=== PATIENT | male | born 1965 | race Caucasian/White ===

== ENCOUNTER → 2018-07-10 | Day surgery (SDC) | payer BC ==
[2018-07-08 09:53] VITALS: BMI 38.0
[~2018-07-10] MED LIST: LACTATED RINGERS 1,000 ML IV ONE; LACTATED RINGERS 1,000 ML IV SCH; LIDOCAINE 1% 20 ML VIAL (10MG/ML) FOR IV START INTRADERMA ONE; LIDOCAINE 1% INJ 10MG/ML (20 ML MDV) ONE; PROPOFOL 10 MG/ML 20 ML VIAL IV ONE
[2018-07-10 10:09] VITALS: TEMP 97.7
--- NOTE | 2018-07-10 11:38 | P.PCN ---
Date of Procedure: 07/10/18 Procedure(s) Performed: BRIEF HISTORY: Patient is a 52-year-old pleasant white male, scheduled for an elective colonoscopy as a part of screening for colorectal neoplasia. PROCEDURE PERFORMED: Colonoscopy. PREOPERATIVE DIAGNOSIS: Screening for colon cancer. IV sedation per Anesthesia. PROCEDURE: After informed consent was obtained, the patient, was brought into the endoscopy unit. IV sedation was administered by Anesthesia under continuous monitoring. Digital rectal examination was normal. Initially the Olympus CF- 160 flexible video colonoscope was then inserted in the rectum, gradually advanced into the cecum without any difficulty. Careful examination was performed as the scope was gradually being withdrawn. Ileocecal valve and the appendiceal orifice were visualized and appeared normal. Prep was excellent. Mucosa of the cecum, ascending colon, transverse colon, descending colon, sigmoid colon, and rectum appeared normal. Scattered sigmoid diverticulosis. Retroflexion was performed in the rectum and no lesions were seen. The patient tolerated the procedure well. IMPRESSION: Normal-appearing colon from rectum to cecum with no evidence of colorectal neoplasia . Scattered sigmoid diverticulosis RECOMMENDATIONS: Findings of this examination were discussed with the patient as well as his family. He was advised to have a repeat screening colonoscopy in 10 years.
[2018-07-10 11:40] VITALS: RESP 16
[2018-07-10 11:54] VITALS: BP 121/78; PULSE 66
== END ==
LOC: ORWHC2ENDO 09:45
PROVIDERS: ATTEND Internal Medicine Gastroenterology
DX: Z12.11 Encounter for screening for malignant neoplasm of colon (principal); K57.30 Diverticulosis of large intestine without perforation or abscess without bleeding; E78.5 Hyperlipidemia, unspecified; Z79.899 Other long term (current) drug therapy
CPT/HCPCS: J2001; J2704; G0121

== ENCOUNTER → 2018-12-04 | Day surgery (SDC) | payer BC ==
[2018-12-03 08:21] VITALS: BMI 36.9
--- NOTE | 2018-12-03 23:30 | HP ---
HISTORY AND PHYSICAL CHIEF COMPLAINT: Fluid in both ears. HISTORY OF PRESENT ILLNESS: This patient is a 53-year-old male who was recently seen in my office for evaluation of a plugged sensation in both ears. The patient stated that he had recently experienced an upper respiratory tract infection, and during that time both of his ears became plugged. He was placed on a course of oral antibiotics and a Medrol steroid pack by his family physician. However, this medication did not help his symptoms. At the time that he was seen in my office, clinical examination of the ears revealed chronic bilateral serous otitis media, so-called "glue ear." Because the patient had already been on steroids and antibiotics, I recommended that he undergo a bilateral myringotomy with insertion of ventilation tubes under IV sedation with M.A.C. PAST MEDICAL HISTORY: Past medical history reveals the patient has NO KNOWN ALLERGIES TO MEDICATIONS. MEDICATIONS: His only current medication is Vytorin. REVIEW OF SYSTEMS: Review of systems is positive with respect to the metabolic endocrine system, which is positive for hypercholesterolemia. PREVIOUS SURGERIES: Previous surgeries include tonsillectomy, adenoidectomy and colonoscopy. PHYSICAL EXAMINATION: This patient is a 53-year-old male who was alert and cooperative. HEENT EXAMINATION: Patient is normocephalic. Tympanic membranes are dull bilaterally with fluid in both middle ear spaces. Pupils are equal, round and reactive to light and accommodation. Extraocular movements within normal limits. Intranasal examination reveals moderate to severe septal deviation with compensatory hypertrophy of the inferior turbinates and a moderate amount of mucus on the mucous membranes and draining down the posterior pharynx. Examination of the oropharynx, cranial nerves 2 through 12, and the remainder of the head and neck exam is all within normal limits. CHEST/CARDIOVASCULAR: Both lung barnard are clear to percussion and auscultation. The patient is in regular sinus rhythm. S1 and S2 are present without evidence of any murmurs, S3s or S4s. Peripheral pulses are bilaterally symmetrical and within normal limits. ABDOMEN: There is no evidence of any masses, megaly or tenderness. Abdomen is soft. Skin is unremarkable. MUSCULOSKELETAL: Within normal limits. NEUROLOGICAL: Within normal limits. RECTAL EXAM: The rectal exam is deferred at this time because the patient has it done on a regular basis at his family physician's office. The remainder of physical exam is unremarkable. IMPRESSION: Chronic bilateral serous otitis media. PLAN: The patient is scheduled to undergo a bilateral myringotomy with insertion of ventilation tubes under IV sedation with M.A.C. in the morning. ATTENTION RNS IN THE PRE-SURGICAL AREA: I have not ordered any pre-surgical prophylactic antibiotics for this patient. If the pharmacy department sends any pre- surgical prophylactic antibiotics to the pre-surgical area for this patient, that order should be cancelled and the medication should be returned to the pharmacy department. Please make sure that the patient's account is credited appropriately. I have discussed the risks, benefits and alternative therapies for the above-mentioned procedure and for both sedation/analgesia as well as necessary blood product administration, if indicated, as they pertain to this patient. The patient has indicated his or her understanding and acceptance of the risks and procedures discussed. MMYOL / CATHERINEN: [id number] /
[~2018-12-04] MED LIST changes: +DEXAMETHASONE SOD PHOSPHATE 10 MG/ML 1 ML VIAL IV ONE; +GLYCOPYRROLATE 0.2 MG/ML 2 ML VIAL ONE; +HYDROmorphone 0.5 MG/0.5 ML SYRINGE IVP PRN; -LACTATED RINGERS 1,000 ML IV ONE; -LIDOCAINE 1% INJ 10MG/ML (20 ML MDV) ONE; +MIDAZOLAM (PF) 2 MG/2 ML VIAL IV PRN; +MIDAZOLAM 2 MG/2 ML VIAL ONE; +OFLOXACIN 0.3% OTIC DROPS 5 ML BTL BOTH EARS ONE; +ONDANSETRON 4 MG/2 ML VIAL IVP ONE; +Pre Op ABX Message 1 EACH MISC MISCELLANE ONE; +SCOPOLAMINE 1.5MG/72HR PATCH TRANSDERM ONE; +fentaNYL (PF) 50 MCG/ML 2 ML AMP ONE
[2018-12-04 09:45] VITALS: TEMP 97.3
[2018-12-04 11:31] VITALS: RESP 17
[2018-12-04 11:38] VITALS: BP 132/66; PULSE 50
--- NOTE | 2018-12-07 15:05 | OP ---
OPERATIVE REPORT DATE OF SERVICE: 12/04/2018 PREOPERATIVE DIAGNOSIS: Chronic bilateral serous otitis media. POSTOPERATIVE DIAGNOSIS: Chronic bilateral serous otitis media. ANESTHESIA: IV sedation with M.A.C. OPERATING SURGEON: Dr. Li. OPERATIVE PROCEDURE: Bilateral myringotomy with insertion of ventilation tubes. SURGEON: Dr. Li. COMPLICATIONS: None. PROCEDURE: The patient was placed on the Operating table in the supine position after uneventful induction and IV sedation, satisfactory general anesthesia was obtained. Next, the operating microscope was brought into position over the patient's right ear where after insertion of a #3 aural speculum, the external canal was cleansed of all wax and debris. The myringotomy knife was used to make an incision in the anterior inferior quadrant of the right tympanic membrane. The middle ear space was suctioned free of all fluid and a 1.1 mm Lisa bobbin ventilation tube was inserted without any difficulty. Attention was then directed to the left ear where the same procedure was carried out using the operating microscope, #3 aural speculum, the external auditory canal was cleansed of all wax and debris. The myringotomy knife was used to make an incision in the anterior inferior quadrant of the left tympanic membrane and the middle ear space was suctioned free of all fluid. A 1.1 mm Lisa bobbin ventilation tube was inserted without any difficulty. At this point, the procedure was terminated. There were no intraoperative complications. The patient tolerated the procedure well and was returned to the Recovery Room in satisfactory condition. MMODL / IJN: [id number] /
== END | disposition home or self-care (01) ==
LOC: OR 09:22
PROVIDERS: ATTEND Otolaryngology
DX: H65.23 Chronic serous otitis media, bilateral (principal); E78.00 Pure hypercholesterolemia, unspecified; E78.5 Hyperlipidemia, unspecified; K21.9 Gastro-esophageal reflux disease without esophagitis; Z79.899 Other long term (current) drug therapy
CPT/HCPCS: 69436; J2250; J1100; J2405; J3010; J2704

== ENCOUNTER 2019-04-21 17:54 | Observation (INO) | payer BC ==
[2019-04-21] MEDS ORDERED: ASPIRIN 81 MG PO STA (18:36)
[2019-04-21] MEDS ORDERED: NITROGLYCERIN SL TABS 0.4 MG TAB SUBLINGUAL STA (18:36)
--- NOTE | 2019-04-21 18:42 | ED ---
General Adult HPI - General Chief complaint: Abdominal Pain Stated complaint: Abd pain, nausea Time Seen by Provider: 04/21/19 18:01 Source: patient Mode of arrival: ambulatory Limitations: no limitations - History of Present Illness Initial comments: Patient is a 53-year-old male presenting to emergency Department with a chief complaint of abdominal pain. Patient reports he develops epigastric abdominal pain whenever he gets "worked up" especially while he is at work. Patient reports this has been ongoing for approximately 3 months. Patient reports over the past 2 days he has had a constant feeling and is epigastric/lower chest region. Patient reports it is not pain but rather pressured that does not radiate and is nonexertional. Patient also reports nausea but denies but no vomiting. Patient denies diaphoresis. Patient also reports increased shortness of breath on exertion over the past 3 months especially when going up a flight of stairs. Patient does have a family history of cardiovascular disease. Patient does have hypercholesterolemia and is currently treated for it. Patient denies any previous cardiac stress testing or echo. Patient reports taking Prilosec with minimal improvement. Patient denies any chest tightness, blurry vision or any headaches at this time. - Related Data Home Medications Medication Instructions Recorded Confirmed Atorvastatin [Lipitor] 40 mg PO HS 04/21/19 04/21/19 Allergies Allergy/AdvReac Type Severity Reaction Status Date / Time No Known Allergies Allergy Verified 04/21/19 18:24 Review of Systems ROS Statement: Those systems with pertinent positive or pertinent negative responses have been documented in the HPI. ROS Other: All systems not noted in ROS Statement are negative. Past Medical History Past Medical History: Hyperlipidemia History of Any Multi-Drug Resistant Organisms: None Reported Past Surgical History: Tonsillectomy Additional Past Surgical History / Comment(s): colonoscopy Past Anesthesia/Blood Transfusion Reactions: No Reported Reaction Past Psychological History: No Psychological Hx Reported Smoking Status: Never smoker Past Alcohol Use History: None Reported Past Drug Use History: None Reported - Past Family History Mother Family Medical History: Cancer General Exam Limitations: no limitations General appearance: alert, in no apparent distress, obese Head exam: Present: atraumatic, normocephalic, normal inspection Eye exam: Present: normal appearance, PERRL, EOMI Pupils: Present: normal accommodation ENT exam: Present: normal exam, normal oropharynx, mucous membranes moist, TM's normal bilaterally, normal external ear exam Neck exam: Present: normal inspection, full ROM Respiratory exam: Present: normal lung sounds bilaterally. Absent: rales, chest wall tenderness Cardiovascular Exam: Present: regular rate, normal rhythm, normal heart sounds GI/Abdominal exam: Present: soft, normal bowel sounds, hernia (Umbilical hernia noted). Absent: tenderness (No this with palpation.), guarding, rebound Extremities exam: Present: normal inspection, full ROM Back exam: Present: normal inspection, full ROM Neurological exam: Present: alert, oriented X3 Psychiatric exam: Present: normal affect, normal mood Skin exam: Present: warm, intact, normal color Course Vital Signs 04/21/19 04/21/19 04/21/19 17:55 19:21 21:20 Temperature 98.5 F Pulse Rate 64 61 57 L Respiratory 20 19 18 Rate Blood Pressure 142/87 125/88 120/76 O2 Sat by Pulse 99 99 98 Oximetry EKG Findings - EKG Comments: EKG Findings:: Sinus bradycardia. Ventricular rate 58, DC interval 160, QRS duration 90, QT/QTc 424/416,p-r-t axes 5 -23 17 Medical Decision Making - Medical Decision Making Patient is a 53-year-old male presenting to the emergency Department with a chief complaint of abdominal pain. After speaking with the patient he describes the pain as a pressure in the epigastric/lower substernal region. Patient reports the pain does not radiate anywhere. Patient does have a family history of cardiovascular disease. Patient has hypercholesterolemia. Patient never had a cardiac workup. Patient is obese but not diabetic. Patient has a heart score of 4. Patient does report shortness of breath on exertion over the past 3 months. EKG is unremarkable. Troponins are negative. CBC and CMP unremarkable. At this time I feel that is appropriate for the patient to be admitted for observation and serial troponins. Case discussed with Dr. Pink who is in agreement with the treatment plan. Admitting physician is Dr. Naylor. Cardiology consulted. - Lab Data Result diagrams: 04/21/19 19:00 04/21/19 19:00 Lab Results 04/21/19 04/21/19 04/21/19 Range/Units 19:00 19:00 19:00 WBC 6.3 (3.8-10.6) k/uL RBC 5.47 (4.30-5.90) m/uL Hgb 16.7 (13.0-17.5) gm/dL Hct 48.3 (39.0-53.0) % MCV 88.3 (80.0-100.0) fL MCH 30.5 (25.0-35.0) pg MCHC 34.5 (31.0-37.0) g/dL RDW 15.0 (11.5-15.5) % Plt Count 178 (150-450) k/uL Neutrophils % 46 % Lymphocytes % 40 % Monocytes % 7 % Eosinophils % 3 % Basophils % 1 % Neutrophils # 2.9 (1.3-7.7) k/uL Lymphocytes # 2.5 (1.0-4.8) k/uL Monocytes # 0.4 (0-1.0) k/uL Eosinophils # 0.2 (0-0.7) k/uL Basophils # 0.0 (0-0.2) k/uL PT 9.7 (9.0-12.0) sec INR 0.9 (<1.2) APTT 23.6 (22.0-30.0) sec Sodium 142 (137-145) mmol/L Potassium 4.5 (3.5-5.1) mmol/L Chloride 105 (98-107) mmol/L Carbon Dioxide 24 (22-30) mmol/L Anion Gap 13 mmol/L BUN 22 H (9-20) mg/dL Creatinine 0.86 (0.66-1.25) mg/dL Est GFR (CKD-EPI)AfAm >90 (>60 ml/min/1.73 sqM) Est GFR (CKD-EPI)NonAf >90 (>60 ml/min/1.73 sqM) Glucose 85 (74-99) mg/dL Calcium 9.8 (8.4-10.2) mg/dL Magnesium 1.9 (1.6-2.3) mg/dL Total Bilirubin 0.9 (0.2-1.3) mg/dL AST 30 (17-59) U/L ALT 35 (21-72) U/L Alkaline Phosphatase 81 (38-126) U/L Troponin I (0.000-0.034) ng/mL Total Protein 8.0 (6.3-8.2) g/dL Albumin 4.7 (3.5-5.0) g/dL 04/21/19 Range/Units 19:00 WBC (3.8-10.6) k/uL RBC (4.30-5.90) m/uL Hgb (13.0-17.5) gm/dL Hct (39.0-53.0) % MCV (80.0-100.0) fL MCH (25.0-35.0) pg MCHC (31.0-37.0) g/dL RDW (11.5-15.5) % Plt Count (150-450) k/uL Neutrophils % % Lymphocytes % % Monocytes % % Eosinophils % % Basophils % % Neutrophils # (1.3-7.7) k/uL Lymphocytes # (1.0-4.8) k/uL Monocytes # (0-1.0) k/uL Eosinophils # (0-0.7) k/uL Basophils # (0-0.2) k/uL PT (9.0-12.0) sec INR (<1.2) APTT (22.0-30.0) sec Sodium (137-145) mmol/L Potassium (3.5-5.1) mmol/L Chloride (98-107) mmol/L Carbon Dioxide (22-30) mmol/L Anion Gap mmol/L BUN (9-20) mg/dL Creatinine (0.66-1.25) mg/dL Est GFR (CKD-EPI)AfAm (>60 ml/min/1.73 sqM) Est GFR (CKD-EPI)NonAf (>60 ml/min/1.73 sqM) Glucose (74-99) mg/dL Calcium (8.4-10.2) mg/dL Magnesium (1.6-2.3) mg/dL Total Bilirubin (0.2-1.3) mg/dL AST (17-59) U/L ALT (21-72) U/L Alkaline Phosphatase (38-126) U/L Troponin I <0.012 (0.000-0.034) ng/mL Total Protein (6.3-8.2) g/dL Albumin (3.5-5.0) g/dL Disposition Clinical Impression: Abdominal pain, Chest pain Disposition: ADMITTED IP TO THIS [facility] Is patient prescribed a controlled substance at d/c from ED?: No Time of Disposition: :06
[2019-04-21 19:32] LABS: ALT 35 U/L (21-72); AST 30 U/L (17-59); African American GFR (CKD) >90 (>60 ml/min/1.73 sqM); Albumin 4.7 g/dL (3.5-5.0); Alkaline Phosphatase 81 U/L (38-126); Anion Gap 13 mmol/L; Blood Urea Nitrogen 22 mg/dL (9-20); Calcium 9.8 mg/dL (8.4-10.2); Carbon Dioxide 24 mmol/L (22-30); Chloride 105 mmol/L (98-107); Glucose 85 mg/dL (74-99); Magnesium 1.9 mg/dL (1.6-2.3); Potassium 4.5 mmol/L (3.5-5.1); Sodium 142 mmol/L (137-145); Total Bilirubin 0.9 mg/dL (0.2-1.3)
--- NOTE | 2019-04-21 19:32 | XR ---
EXAMINATION TYPE: XR chest 2V DATE OF EXAM: 04/21/2019 COMPARISON: 03/16/2012 HISTORY: Epigastric pain TECHNIQUE: Frontal and lateral views of the chest are obtained. FINDINGS: Heart is normal. Lungs are clear of infiltrate. There is no heart failure. There are no hi lar masses. Thoracic aorta is atheromatous. IMPRESSION: No active cardiopulmonary disease. Normal heart. No change.
[2019-04-21 19:49] LABS: INR 0.9 (<1.2); Partial Thromboplastin Time 23.6 sec (22.0-30.0); Prothrombin Time 9.7 sec (9.0-12.0)
[2019-04-21 19:53] LABS: Basophils % (A) 1 %; Eosinophils # (A) 0.2 k/uL (0-0.7); Eosinophils % (A) 3 %; HCT 48.3 % (39.0-53.0); HGB 16.7 gm/dL (13.0-17.5); Lymphocytes # (A) 2.5 k/uL (1.0-4.8); Lymphocytes % (A) 40 %; MCH 30.5 pg (25.0-35.0); MCHC 34.5 g/dL (31.0-37.0); MCV 88.3 fL (80.0-100.0); Mean Platelet Volume 8.4; Monocytes # (A) 0.4 k/uL (0-1.0); Monocytes % (A) 7 %; Neutrophils # (A) 2.9 k/uL (1.3-7.7); Neutrophils % (A) 46 %; Platelet Count 178 k/uL (150-450); RBC 5.47 m/uL (4.30-5.90); WBC 6.3 k/uL (3.8-10.6)
[2019-04-21] MEDS ORDERED: NALOXONE 0.4 MG/ML 1 ML VIAL IV PRN (21:00)
[2019-04-21] MEDS ORDERED: IBUPROFEN 400 MG TAB PO PRN (21:00)
[2019-04-21] MEDS ORDERED: ACETAMINOPHEN TAB 325 MG TAB PO PRN (21:00)
[2019-04-21] MEDS ORDERED: MORPHINE SULFATE 4 MG/ML SYRINGE IV PRN (21:00)
[2019-04-21] MEDS ORDERED: FAMOTIDINE 20 MG TAB PO SCH (21:00)
[2019-04-21] MEDS ORDERED: ONDANSETRON 4 MG/2 ML VIAL IVP PRN (21:00)
[2019-04-21] MEDS ORDERED: MAG HYDROX/AL HYDROX/SIMETH 30 ML CUP PO PRN (23:04)
--- NOTE | 2019-04-21 23:13 | P.HPIM ---
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 Having said that he had done a lot of physical activities over the past 3 weeks and none of these physical activities as precipitated this chest discomfort. Then he adds over the past 3 days he noticed constant epigastric discomfort described it as pressure 8-6 out of 10 in severity at the epigastric and lower c hest region nonradiating gets worse with emotional stress associated with nausea but no vomiting denies any heart racing or trouble breathing, denies any associated dizziness heart racing or sweating. Pain is nonradiating. No specific relieving factors however it's aggravated by emotional stress. He didn't try any medications however he notices that the pain became more persistent and worsening slightly for which she decided to come to the hospital prior to coming to the hospital he took one Prilosec and didn't notice any immediate improvement. He otherwise denies any GI bleeding denies any fevers or chills denies any melena denies any changes in his urinary habits. Patient doesn't take any aspirin at home denies taking any NSAIDs. Patient does take statin for his hyperlipidemia. He denies any family history of premature CAD Currently is laying comfortable in bed still reporting some epigastric discomfort otherwise is test in the ED were unremarkable patient admitted for atypical chest pain to rule out ACS Review of Systems Pertinent positives as noted in HPI. All other systems were reviewed and are negative Past Medical History Past Medical History: Hyperlipidemia History of Any Multi-Drug Resistant Organisms: None Reported Past Surgical History: Tonsillectomy Additional Past Surgical History / Comment(s): colonoscopy, EAR TUBES Past Anesthesia/Blood Transfusion Reactions: No Reported Reaction Past Psychological History: No Psychological Hx Reported Smoking Status: Never smoker Past Alcohol Use History: None Reported Past Drug Use History: None Reported - Past Family History Mother Family Medical History: Cancer Additional Family Medical History / Comment(s): Denies family history of premature CAD, dad had coronary artery disease in his 60s Medications and Allergies Home Medications Medication Instructions Recorded Confirmed Type Atorvastatin [Lipitor] 40 mg PO HS 04/21/19 04/21/19 History Allergies Allergy/AdvReac Type Severity Reaction Status Date / Time No Known Allergies Allergy Verified 04/21/19 18:24 Physical Exam Vitals: Vital Signs Temp Pulse Pulse Resp BP BP Pulse Ox 04/21/19 22:00 98.4 F 60 17 133/89 97 04/21/19 21:20 57 L 18 120/76 98 04/21/19 19:21 61 19 125/88 99 04/21/19 17:55 98.5 F 64 20 142/87 99 Intake and Output 04/21/19 04/21/19 04/22/19 14:59 22:59 06:59 Other: Weight 122.47 kg Constitutional: No acute distress, conversant, pleasant Eyes: Anicteric sclerae, moist conjunctiva, no lid-lag Pupils equal round reactive to light ENMT: NC/AT Oropharynx clear, no erythema, or exudates Neck: Supple, FROM, no masses, or JVD No carotid bruits No thyromegaly Lungs: Clear to auscultation Clear to percussion Normal respiratory effort, no accessory muscle use Cardiovascular: Heart regular in rate and rhythm, No murmurs, gallops, or rubs No peripheral edema Abdominal: Soft Nontender, no guarding, rebound or rigidity Abdomen moving with respiration Normoactive bowel sounds No hepatomegaly, No splenomegaly No palpable mass Umbilical hernia reducible Skin: Normal temperature, tone, texture, turgor No induration No subcutaneous nodules No rash, lesions No ulcers Extremities: No digital cyanosis No clubbing Pedal pulses intact and symmetrical Radial pulses intact and symmetrical No calf tenderness Psychiatric: Alert and oriented to person, place and time Appropriate affect fair judgment Neuro Muscles Strength 5/5 in all 4 extremities Sensation to light touch grossly present throughout Cranial nerves II-XII grossly intact No focal sensory deficits Lymphatics: no palpable cervical or supraclavicular , or inguinal lymph nodes Results CBC & Chem 7: 04/21/19 19:00 04/21/19 19:00 Labs: Abnormal Lab Results - Last 24 Hours (Table) 04/21/19 Range/Units 19:00 BUN 22 H (9-20) mg/dL Thrombosis Risk Factor Assmnt - Choose All That Apply Any of the Below Risk Factors Present?: Yes Each Factor Represents 1 point: Acute ME, Age 41-60 years, Obesity (BMI >25) Other Risk Factors: No Other congenital or acquired thrombophilia - If yes, enter type in comment: No Thrombosis Risk Factor Assessment Total Risk Factor Score: 3 Thrombosis Risk Factor Assessment Level: Moderate Risk Assessment and Plan Assessment: 53-year-old male with history of hyperlipidemia admitted under observation with anticipated length of stay less than 2 midnights due to chest pain atypical in nature to rule out acute coronary syndrome Plan: Atypical chest pain rule out acute coronary syndrome versus peptic ulcer disease Monitor cardiac enzymes Monitor vital signs Pepcid twice a day Maalox when necessary Pain control Trend cardiac enzymes Cardiac consult Aspirin and statin Obesity Patient counseled regarding lifestyle modification, and avoiding tightfitting clothes that might increase risk of GERD Hyperlipidemia continue statin Surrogate decision-maker: Patient's son CODE STATUS: Full code DVT prophylaxis: Heparin subcu 3 times a day Discussed with: Patient, ER, RN Anticipated length of stay less than [address]: Home A total of 60 minutes was spent on the care of this complex patient more than 50% of the time was spent in counseling and care coordination.
[2019-04-21] MEDS ORDERED: ATORVASTATIN 40 MG TAB PO SCH (23:15)
[2019-04-21] MEDS: HEPARIN SODIUM,PORCINE 5,000 UNIT/ML 1 ML VIAL SQ SCH (23:25)
[2019-04-22 07:21] VITALS: RESP 18
--- NOTE | 2019-04-22 08:01 | P.CRDCN ---
History of Present Illness Consult date: 04/22/19 Chief complaint: Chest pain History of present illness: This is a pleasant 53-year-old gentleman with a past medical history significant for dyslipidemia as well as overweight presented to the hospital complaining of epigastric discomfort. For the last several weeks, the patient has been experiencing discomfort in the epigastric area, without any chest pain or chest discomfort, arm discomfort, or shoulder discomfort. The patient stated that the discomfort is mainly with emotional stress more than physical stress. He stated that he has done a lot of physical activities lately and he did not have any chest pain or epigastric discomfort with his activities. The patient is not aware of any prior history of coronary artery disease, congestive heart failure, or cardiac arrhythmia. During this admission, the EKG showed sinus rhythm wit hout any ischemic ST or T-wave abnormalities. The cardiac enzymes came in to be unremarkable. On examination, the patient is not having any tenderness in the epigastric area and the abdomen is soft and nontender. In term of past medical history he does have dyslipidemia only. No coronary artery disease, diabetes, or hypertension. The patient does not smoke. There is no significant family history of coronary artery disease. I am going to obtain a stress test to rule out severe coronary artery disease. He is in process of getting an echocardiogram done this morning. We'll continue following up with him. Past Medical History Past Medical History: Hyperlipidemia History of Any Multi-Drug Resistant Organisms: None Reported Past Surgical History: Tonsillectomy Additional Past Surgical History / Comment(s): colonoscopy, EAR TUBES Past Anesthesia/Blood Transfusion Reactions: No Reported Reaction Past Psychological History: No Psychological Hx Reported Smoking Status: Never smoker Past Alcohol Use History: None Reported Past Drug Use History: None Reported - Past Family History Mother Family Medical History: Cancer Additional Family Medical History / Comment(s): Denies family history of premature CAD, dad had coronary artery disease in his 60s Medications and Allergies Home Medications Medication Instructions Recorded Confirmed Type Atorvastatin [Lipitor] 40 mg PO HS 04/21/19 04/21/19 History Allergies Allergy/AdvReac Type Severity Reaction Status Date / Time No Known Allergies Allergy Verified 04/21/19 18:24 Physical Exam Vitals: Vital Signs Temp Pulse Pulse Resp BP BP BP 04/22/19 07:05 97.4 F L 63 18 133/82 04/22/19 03:57 98.2 F 61 17 101/59 04/22/19 03:39 56 L 17 04/22/19 00:00 61 17 04/21/19 23:45 97.6 F 61 17 106/68 04/21/19 22:00 98.4 F 60 17 133/89 04/21/19 21:20 57 L 18 120/76 04/21/19 19:21 61 19 125/88 04/21/19 17:55 98.5 F 64 20 142/87 Pulse Ox 04/22/19 07:05 94 L 04/22/19 03:57 93 L 04/22/19 03:39 04/22/19 00:00 04/21/19 23:45 04/21/19 22:00 97 04/21/19 21:20 98 04/21/19 19:21 99 04/21/19 17:55 99 Intake and Output 04/21/19 04/22/19 04/22/19 22:59 06:59 14:59 Other: Weight 122.47 kg - Constitutional General appearance: no acute distress - Respiratory Respiratory: bilateral: CTA - Cardiovascular Rhythm: regular Heart sounds: normal: S1, S2 Results 04/21/19 19:00 04/21/19 19:00 Cardiac Enzymes 04/21/19 04/21/19 04/22/19 Range/Units 19:00 19:00 01:01 AST 30 (17-59) U/L Troponin I <0.012 <0.012 (0.000-0.034) ng/mL Coagulation 04/21/19 Range/Units 19:00 PT 9.7 (9.0-12.0) sec APTT 23.6 (22.0-30.0) sec CBC 04/21/19 Range/Units 19:00 WBC 6.3 (3.8-10.6) k/uL RBC 5.47 (4.30-5.90) m/uL Hgb 16.7 (13.0-17.5) gm/dL Hct 48.3 (39.0-53.0) % Plt Count 178 (150-450) k/uL Comprehensive Metabolic Panel 04/21/19 Range/Units 19:00 Sodium 142 (137-145) mmol/L Potassium 4.5 (3.5-5.1) mmol/L Chloride 105 (98-107) mmol/L Carbon Dioxide 24 (22-30) mmol/L BUN 22 H (9-20) mg/dL Creatinine 0.86 (0.66-1.25) mg/dL Glucose 85 (74-99) mg/dL Calcium 9.8 (8.4-10.2) mg/dL AST 30 (17-59) U/L ALT 35 (21-72) U/L Alkaline Phosphatase 81 (38-126) U/L Total Protein 8.0 (6.3-8.2) g/dL Albumin 4.7 (3.5-5.0) g/dL Current Medications Generic Name Dose Route Start Last Admin Trade Name Freq PRN Reason Stop Dose Admin Acetaminophen 650 mg 04/21/19 21:00 Tylenol Tab PO Q6HR PRN Mild Pain or Fever > 100.5 Al Hydroxide/Mg Hydroxide 30 ml 04/21/19 23:04 Maalox PO Q4HR PRN GI Upset Atorvastatin Calcium 40 mg 04/21/19 23:15 04/21/19 23:26 Lipitor PO 40 mg HS ALIA Administration Famotidine 20 mg 04/21/19 21:00 04/21/19 21:20 Pepcid PO 20 mg BID ALIA Administration Heparin Sodium (Porcine) 5,000 unit 04/22/19 00:00 04/21/19 23:25 Heparin SQ 5,000 unit Q8HR ALIA Administration Morphine Sulfate 4 mg 04/21/19 21:00 Morphine Sulfate (Inj) IV Q4HR PRN Severe Pain Naloxone HCl 0.2 mg 04/21/19 21:00 Narcan IV Q2M PRN Opioid Reversal Ondansetron HCl 4 mg 04/21/19 21:00 Zofran IVP Q8HR PRN Nausea And Vomiting Intake and Output 04/21/19 04/22/19 04/22/19 22:59 06:59 14:59 Other: Weight 122.47 kg 04/21/19 19:00 04/21/19 19:00 Assessment and Plan Assessment: Assessment #1 atypical chest discomfort/epigastric discomfort #2 dyslipidemia Plan #1 acute coronary event was ruled out #2 we'll obtain a stress test #3 an echocardiogram #4 follow-up with the patient Thank you for allowing us participate in the patient's care
[2019-04-22] MEDS: HEPARIN SODIUM,PORCINE 5,000 UNIT/ML 1 ML VIAL SQ SCH (09:06)
[2019-04-22 11:20] VITALS: BP 118/78; PULSE 62; TEMP 97.9
--- NOTE | 2019-04-22 12:36 | ECHOF ---
Referral Reason:chest pain MEASUREMENTS -------- HEIGHT: 175.3 cm WEIGHT: 122.5 kg BP: 130/60 RVIDd: 3.1 cm (< 3.3) IVSd: 1.3 cm (0.6 - 1.1) LVIDd: 5.0 cm (3.9 - 5.3) LVPWd: 1.0 cm (0.6 - 1.1) IVSs: 1.7 cm LVIDs: 3.5 cm LVPWs: 1.1 cm LAESV Index (A-L): 22.95 ml/m Ao Diam: 3.5 cm (2.0 - 3.7) AV Cusp: 2.1 cm (1.5 - 2.6) LA Diam: 3.2 cm (2.7 - 3.8) MV EXCURSION: 16.399 mm (> 18.000) MV EF SLOPE: 78 mm/s (70 - 150) EPSS: 0.5 cm MV E Devin: 0.68 m/s MV DecT: 211 ms MV A Devin: 0.64 m/s MV E/A Ratio: 1.07 RAP: 5.00 mmHg RVSP: 15.39 mmHg FINDINGS -------- Sinus rhythm. This was a techncally difficult study with suboptimal views, , Lumason utilized for enhancement of im ages. The left ventricular size is normal. Left ventricular wall thickness is normal. Overall left vent ricular systolic function is normal with, an EF between 55 - 60 %. The right ventricle is normal in size. The left atrial size is normal. Normal LA size by volume 22+/-6 ml/m2. The right atrial size is normal. 5.0mg OF Lumason UTLIZED: 2 OR MORE WALL SEGMENTS NOT VISUALIZED. The aortic valve is trileaflet, and appears structurally normal. No aortic stenosis or regurgitation. Mild mitral annular calcification present. Mild mitral regurgitation is present. Mild tricuspid regurgitation present. There is no evidence of pulmonary hypertension. The right v entricular systolic pressure, as measured by Doppler, is 15.39mmHg. There is no pulmonic regurgitation present. The aortic root size is normal. There is no pericardial effusion. CONCLUSIONS -------- 1. Sinus rhythm. 2. This was a techncally difficult study with suboptimal views, , Lumason utilized for enhancement of images. 3. The left ventricular size is normal. 4. Left ventricular wall thickness is normal. 5. Overall left ventricular systolic function is normal with, an EF between 55 - 60 %. 6. The right ventricle is normal in size. 7. The left atrial size is normal. 8. Normal LA size by volume 22+/-6 ml/m2. 9. The right atrial size is normal. 10. 5.0mg OF Lumason UTLIZED: 2 OR MORE WALL SEGMENTS NOT VISUALIZED. 11. The aortic valve is trileaflet, and appears structurally normal. No aortic stenosis or regurgitat ion. 12. Mild mitral annular calcification present. 13. Mild mitral regurgitation is present. 14. Mild tricuspid regurgitation present. 15. There is no evidence of pulmonary hypertension. 16. The right ventricular systolic pressure, as measured by Doppler, is 15.39mmHg. 17. There is no pulmonic regurgitation present. 18. The aortic root size is normal. 19. There is no pericardial effusion. MIS SPECIALIST: Sharmaine Reza RDCS
--- NOTE | 2019-04-22 14:44 | P.DS ---
Providers Date of admission: 04/21/19 20:42 Expected date of discharge: 04/22/19 Attending physician: Ciara Naylor MD Consults: 04/21/19 21:00 Consult Physician Stat Consulting Provider: Tammy Ruiz Consult Reason/Comments: NE rule out, serial troponins. 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 Having said that he had done a lot of physical activities over the past 3 weeks and none of these physical activities as precipitated this chest discomfort. Troponin was less than 0.0123 with EKG showing normal sinus rhythm. Acute coronary syndrome was ruled out. Cardiology was consulted and recommended echocardiogram and stress test. Echocardiogram showed EF 55-60% with normal wall thickness. Stress test was negative. Patient was cleared for discharge from a cardiology standpoint. General: [non toxic], [no distress], [appears at stated age] Derm: [warm], [dry] Head: [atraumatic], [normocephalic], [symmetric] Eyes: [EOMI], [no lid lag], [anicteric sclera] Mouth: [no lip lesion], [mucus membranes moist] Cardiovascular: [S1S2 reg], [no murmur] Lungs: [CTA bilateral], [no rhonchi, no rales] , [no accessory muscle use] Ext: [no gross muscle atrophy], [no edema], [no contractures] Psych: [Alert], [oriented], [appropriate affect] Assessment and plan Atypical chest pain, ACS ruled out, likely gastritis versus peptic ulcer disease ACS ruled out. Echocardiogram within normal limits. Stress test negative. Plans: Start Prilosec twice a day. Advised to follow-up with PCP for H pylori testing. Pertinent Studies: Chest x-ray, echocardiogram, stress test Patient Condition at Discharge: Stable Plan - Discharge Summary Discharge Rx Participant: No New Discharge Prescriptions: New Omeprazole [PriLOSEC] 20 mg PO AC-BID #60 cap Continue Atorvastatin [Lipitor] 40 mg PO HS Discharge Medication List Atorvastatin [Lipitor] 40 mg PO HS 04/21/19 [History] Omeprazole [PriLOSEC] 20 mg PO AC-BID #60 cap 04/22/19 [Rx] Follow up Appointment(s)/Referral(s): Kishan Vicente MD [Primary Care Provider] - 1-2 days Patient Instructions/Handouts: Abdominal Pain (ED) Activity/Diet/Wound Care/Special Instructions: Patient will be admitted for observation. Discharge Disposition: HOME SELF-CARE
--- NOTE | 2019-04-23 12:14 | EST ---
EXERCISE STRESS DATE OF SERVICE: 04/22/2019 AGE: 53 SEX: Male HT: 69 WT: 270 PROTOCOL: Dima STAGE: II DURATION OF EXERCISE: 5 minutes HEART RATE REST: 68 BLOOD PRESSURE REST: 133/86 MAXIMUM HEART RATE ACHIEVED: 149 MAXIMUM BLOOD PRESSURE: 166/62 85% MPHR: 140 100% MPHR: 165 METS: 7.0 INDICATIONS: Chest pain. CLINICAL INFORMATION: STRESS DATA: Heart rate 68, pressure is 133/86 mmHg. Baseline EKG showed sinus rhythm. The patient exercised on the treadmill according to Dima protocol for a total of 5 minutes and achieved 7.0 METs. Max heart rate was 149, which is about 90% of maximum predicted heart rate. Maximum pressure was 166/62 mmHg. Clinically the patient did not have any symptoms and the EKG did not show any significant ST or T-wave abnormalities concerning for ischemia. CONCLUSION: 1. Good exercise tolerance. 2. Normal EKG in response to exercise. MMODL / IJN: [id number] /
== END 2019-04-22 15:18 | disposition home or self-care (01) ==
LOC: EC 17:54 → 1SOBS 20:42
PROVIDERS: ADMIT Internal Medicine; ATTEND Internal Medicine
DX: R07.89 Other chest pain (principal); R10.13 Epigastric pain; E78.5 Hyperlipidemia, unspecified; E78.00 Pure hypercholesterolemia, unspecified; R06.02 Shortness of breath; K42.9 Umbilical hernia without obstruction or gangrene; Z56.6 Other physical and mental strain related to work; E66.9 Obesity, unspecified; Z68.39 Body mass index [BMI] 39.0-39.9, adult; Z79.899 Other long term (current) drug therapy; Z80.9 Family history of malignant neoplasm, unspecified; Z82.49 Family history of ischemic heart disease and other diseases of the circulatory system
CPT/HCPCS: 96372; 99285; 36415; 93005; 93017; 93306; 80053; 83735; 84484 ×2; 85025; 85610; 85730; 71046; G0378 ×2; J1644; Q9950

== ENCOUNTER → 2019-10-15 | Outpatient (CLI) | payer BC ==
--- NOTE | 2019-10-15 08:39 | CT ---
EXAMINATION TYPE: CT brain wo con DATE OF EXAM: 10/15/2019 COMPARISON: INDICATION: Left sided headache with ear pain and memory loss DLP: 1392.6 mGycm, Automated exposure control for dose reduction was used. CONTRAST: None CT of the brain is performed utilizing 3 mm thick sections through the posterior fossa and 3 mm thick sections through the remaining calvarium. Study is performed within 24 hours of arrival to the hosp ital. No abnormal hyperdensity is present to suggest an acute intracranial hemorrhage. No mass lesion is evident. No acute infarcts are evident. Ventricles and sulci are appropriate for the patient age. Paranasal sinuses as visualized are clear. There is fluid within the left mastoid air cells. Fluid ma y be within the left middle ear. Bilateral tympanic membrane tubes may be present. IMPRESSIONS: 1. No acute intracranial process. 2. Clinical correlation recommended for left mastoiditis and left otitis media
== END | disposition home or self-care (01) ==
LOC: RADCTMAIN 07:59
PROVIDERS: ATTEND Family Medicine
DX: R42 Dizziness and giddiness (principal); H93.13 Tinnitus, bilateral
CPT/HCPCS: 70450

== ENCOUNTER → 2020-02-07 | Day surgery (SDC) | payer BC ==
[2020-02-04 09:23] VITALS: BMI 38.7
[~2020-02-07] MED LIST changes: -GLYCOPYRROLATE 0.2 MG/ML 2 ML VIAL ONE; +LIDOCAINE 1% (10MG/ML) FOR IV START INTRADERMA ONE; -LIDOCAINE 1% 20 ML VIAL (10MG/ML) FOR IV START INTRADERMA ONE; +LIDOCAINE 1% INJ 10MG/ML (20 ML MDV) ONE; -MIDAZOLAM (PF) 2 MG/2 ML VIAL IV PRN; +MIDAZOLAM 2 MG/2 ML VIAL IV PRN; +OFLOXACIN 0.3% OPHTH DROPS 5 ML BOTTLE BOTH EARS ONE; -OFLOXACIN 0.3% OTIC DROPS 5 ML BTL BOTH EARS ONE; +ONDANSETRON 4 MG/2 ML VIAL ONE
--- NOTE | 2020-02-07 01:19 | HP ---
HISTORY AND PHYSICAL CHIEF COMPLAINT: Fluid in the ears. HISTORY OF PRESENT ILLNESS: The patient is a 54-year-old male who was recently seen in my office complaining of having a plugged sensation in both ears. 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 The patient was placed on several courses of oral steroids and antibiotics. He was seen back approximately 2 weeks later and stated that the ears were still blocked. 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 It was therefore recommended that the patient undergo a bilateral myringotomy with insertion of the ventilation tubes under IV sedation. PAST MEDICAL HISTORY: Past medical history reveals patient has no known allergies to medications. His only current medication is Vytorin. Previous surgeries include a bilateral myringotomy with insertion of ventilation tubes. REVIEW OF SYSTEMS: Cardiovascular is positive for hypertension. Metabolic/Endocrine is positive for hypercholesterolemia. The remainder of the review of systems is essentially unremarkable. OBJECTIVE: HEENT: Patient is normocephalic. Tympanic membranes are dull bilaterally with fluid in both middle ear spaces. Pupils are equal, round, reactive to light and accommodation. Extraocular movements are within normal limits. Intranasal examination reveals moderate septal deviation with compensatory hypertrophy of inferior turbinates and a moderate amount of mucus on the mucous membranes and draining down the posterior pharynx. Examination of oropharynx, cranial nerves 2 through 12 and the remainder of the head and neck exam are within normal limits. CHEST/CARDIOVASCULAR: Both lung barnard are clear to percussion and auscultation. The patient is in regular sinus rhythm. S1, S2 are present without evidence any murmurs, S3s or S4s. Peripheral pulses are bilaterally symmetrical and within normal limits. ABDOMEN: There is no evidence any masses, megaly, or tenderness. The abdomen is soft. Skin is unremarkable. Musculoskeletal and neurological are within normal limits. RECTAL EXAM: The rectal exam is deferred at this time because the patient has this done on a regular basis at his family physician's office. The remainder of physical exam is unremarkable. IMPRESSION: Chronic bilateral serous otitis media. PLAN: The patient is scheduled undergo a bilateral myringotomy with insertion of ventilation tubes under IV sedation with MAC. ATTENTION RNS IN THE PRE-SURGICAL AREA: I have not ordered any pre-surgical prophylactic antibiotics for this patient. If the pharmacy department sends any pre- surgical prophylactic antibiotics to the pre-surgical area for this patient, please cancel that order and return the medications to the pharmacy department. Also, please make sure that the patient's account is credited appropriately. I have discussed the risks, benefits and alternative therapies for the above-mentioned procedure and for both sedation/analgesia as well as necessary blood product administration, if indicated, as they pertain to this patient. The patient has indicated his or her understanding and acceptance of the risks and procedures discussed. MMYOL / IJN: [id number] /
[2020-02-07 10:39] VITALS: TEMP 97.1
[2020-02-07 10:47] VITALS: RESP 16
[2020-02-07 11:14] VITALS: PULSE 78
[2020-02-07 11:29] VITALS: BP 128/73
--- NOTE | 2020-02-07 22:57 | OP ---
OPERATIVE REPORT PREOPERATIVE DIAGNOSIS: Chronic bilateral serous otitis media. POSTOPERATIVE DIAGNOSIS: Chronic bilateral serous otitis media. ANESTHESIA: General. OPERATIVE PROCEDURE: Bilateral myringotomy with insertion of Activent Lisa-Bobbin ventilation tubes. OPERATING SURGEON: Dr. Li. COMPLICATIONS: None. PROCEDURE DESCRIPTION: The patient was placed on the Operating table in the supine position after uneventful induction and IV sedation, satisfactory general anesthesia was obtained. Next, the operating microscope was brought into position over the patient?s right ear where after insertion of a #3 aural speculum, the external canal was cleansed of all wax and debris. The myringotomy knife was used to make an incision in the anterior inferior quadrant of the right tympanic membrane. The middle ear space was suctioned free of all fluid and a 1.1 mm Lisa bobbin ventilation tube was inserted without any difficulty. Attention was then directed to the left ear where the same procedure was carried out using the operating microscope, #3 aural speculum, the external auditory canal was cleansed of all wax and debris. The myringotomy knife was used to make an incision in the anterior inferior quadrant of the left tympanic membrane and the middle ear space was suctioned free of all fluid. A 1.1 mm Lisa bobbin ventilation tube was inserted without any difficulty. At this point, the procedure was terminated. There were no intraoperative complications. The patient tolerated the procedure well and was returned to the Recovery Room in satisfactory condition. MMODL / IJN: [id number] /
== END ==
LOC: OR 08:25
PROVIDERS: ATTEND Otolaryngology
DX: H65.23 Chronic serous otitis media, bilateral (principal); I10 Essential (primary) hypertension; E78.5 Hyperlipidemia, unspecified; E78.00 Pure hypercholesterolemia, unspecified; E66.9 Obesity, unspecified; Z79.899 Other long term (current) drug therapy; Z68.41 Body mass index [BMI] 40.0-44.9, adult
CPT/HCPCS: 69436; J2250; J1100; J2405; J2001; J3010; J2704

== ENCOUNTER → 2021-08-09 | Outpatient (CLI) | payer BC ==
--- NOTE | 2021-08-09 19:28 | XR ---
EXAMINATION TYPE: XR lumbar spine 2 or 3V DATE OF EXAM: 08/09/2021 Comparison: None Clinical History: 55-year-old male M54.50 Low Back Pain Findings: Levoconvex scoliosis of lumbar spine. 5 lumbar type vertebral bodies. Hypertrophic facet arthropathy mid to lower lumbar spine. Grade 1 retrolisthesis L2-L3 and L3-L4. Mild multilevel degenerative disc disease. [facility] in the lower thoracic spine. At the static calcifications abdominal aorta with borderli ne ectasia to 2.5 cm. Vertebral body heights are preserved. Impression: 1. Levoconvex scoliosis. 2. Hypertrophic facet arthropathy with degenerative grade 1 retrolisthesis L2-L3 and L3-L4. 3. Mild multilevel degenerative disc disease. [facility] in the lower thoracic spine. 4. No vertebral compression collapse.
== END | disposition home or self-care (01) ==
LOC: RADXRMAIN 14:09
PROVIDERS: ATTEND Internal Medicine
DX: M46.96 Unspecified inflammatory spondylopathy, lumbar region (principal); M51.36 Other intervertebral disc degeneration, lumbar region; M41.86 Other forms of scoliosis, lumbar region
CPT/HCPCS: 72100

== ENCOUNTER 2021-10-01 08:42 | Day surgery (SDC) | payer BC ==
[2021-09-26 16:31] VITALS: BMI 33.7
[~2021-10-01 08:42] MED LIST changes: +ACETAMINOPHEN TAB 500 MG TAB PO PRN; -DEXAMETHASONE SOD PHOSPHATE 10 MG/ML 1 ML VIAL IV ONE; +DEXAMETHASONE SOD PHOSPHATE 4 MG/ML 1 ML VIAL IV ONE; +HEPARIN SODIUM,PORCINE/PF 5,000 UNIT/0.5 ML SYRINGE SQ PRN; -LIDOCAINE 1% (10MG/ML) FOR IV START INTRADERMA ONE; +LIDOCAINE 1% (10MG/ML) FOR IV START INTRADERMA PRN; -LIDOCAINE 1% INJ 10MG/ML (20 ML MDV) ONE; -MIDAZOLAM 2 MG/2 ML VIAL IV PRN; -MIDAZOLAM 2 MG/2 ML VIAL ONE; -OFLOXACIN 0.3% OPHTH DROPS 5 ML BOTTLE BOTH EARS ONE; -ONDANSETRON 4 MG/2 ML VIAL ONE; -PROPOFOL 10 MG/ML 20 ML VIAL IV ONE; -Pre Op ABX Message 1 EACH MISC MISCELLANE ONE; -fentaNYL (PF) 50 MCG/ML 2 ML AMP ONE
--- NOTE | 2021-10-01 09:36 | P.GSHP ---
History of Present Illness H&P Date: 10/01/21 Chief Complaint: Incarcerated umbilical hernia 56-year-old male here today for umbilical hernia repair. Patient with enlarging hernia over the last several years. Has been causing some pain lately. Nonreducible. Past Medical History Past Medical History: Hyperlipidemia Additional Past Medical History / Comment(s): Umbilical hernia. Pos Covid 06/2021. History of Any Multi-Drug Resistant Organisms: None Reported Past Surgical History: Ear Surgery, Tonsillectomy Additional Past Surgical History / Comment(s): Colonoscopy, BMT Past Anesthesia/Blood Transfusion Reactions: No Reported Reaction Smoking Status: Never smoker - Past Family History Mother Family Medical History: Cancer Additional Family Medical History / Comment(s): uterine cancer Medications and Allergies Home Medications Medication Instructions Recorded Confirmed Type Vytorin(Unknown Dose) 1 tab PO HS 10/27/19 10/01/21 History Multivitamins, Thera [Multivitamin 1 tab PO DAILY 09/26/21 10/01/21 History (formulary)] Allergies Allergy/AdvReac Type Severity Reaction Status Date / Time No Known Allergies Allergy Verified 10/01/21 09:09 Surgical - Exam Vital Signs Temp Pulse Resp BP Pulse Ox 98.2 F 76 16 128/80 96 10/01/21 09:12 10/01/21 09:12 10/01/21 09:12 10/01/21 09:12 10/01/21 09:12 Physical exam: General: Well-developed, well-nourished HEENT: Normocephalic, sclerae nonicteric Abdomen: Nontender, nondistended, moderate to large incarcerated umbilical hernia Extremities: No edema Neuro: Alert and oriented Assessment and Plan (1) Incarcerated umbilical hernia Narrative/Plan: 56-year-old male was incarcerated umbilical hernia. Seen with open repair with mesh. Risks of bleeding, infection, recurrence, bladder and bowel injury, numbness, nerve injury were discussed with the patient. The patient understands and wishes to proceed. Current Visit: Yes Status: Acute Code(s): K42.0 - UMBILICAL HERNIA WITH OBSTRUCTION, WITHOUT GANGRENE SNOMED Code(s): 626592872
[2021-10-01] MEDS ORDERED: ROCURONIUM 10 MG/ML (5 ML VIAL) IV ONE (09:50)
[2021-10-01] MEDS ORDERED: PROPOFOL 10 MG/ML 20 ML VIAL IV ONE (09:50)
[2021-10-01] MEDS ORDERED: fentaNYL (PF) 50 MCG/ML 2 ML AMP ONE (09:50)
[2021-10-01] MEDS ORDERED: SUCCINYLCHOLINE CHLORIDE 100 MG/5 ML SYR IV ONE (09:50)
[2021-10-01] MEDS ORDERED: LIDOCAINE 1% INJ 10MG/ML (20 ML MDV) ONE (09:50)
[2021-10-01] MEDS ORDERED: GLYCOPYRROLATE 0.2 MG/ML 2 ML VIAL ONE (09:50)
[2021-10-01] MEDS ORDERED: NEOSTIGMINE 1 MG/ML 10 ML VIAL ONE (09:50)
[2021-10-01] MEDS ORDERED: MIDAZOLAM 2 MG/2 ML VIAL ONE (09:50)
[2021-10-01] MEDS ORDERED: BUPIVACAINE (PF) 0.25% 30 ML VIAL SQ ONE ×2 (10:02→10:54)
[2021-10-01 11:33] VITALS: TEMP 97
--- NOTE | 2021-10-01 11:37 | P.OP ---
Date of Procedure: 10/01/21 Procedure(s) Performed: PREOPERATIVE DIAGNOSIS: Incarcerated umbilical hernia POSTOPERATIVE DIAGNOSIS: Same PROCEDURE: Repair incarcerated umbilical hernia with mesh, partial omentectomy SURGEON: Dr. Villagomez ANESTHESIA: General OPERATIVE PROCEDURE DETAILS: The patient was placed in the operating table in t he supine position. A right sided periumbilical incision was made using the scalpel. The subcutaneous tissues were dissected bluntly and with cautery. The hernia sac was identified. The umbilical attachments to the fascia were divided using electrocautery. The hernia sac was opened. There was a large amount of omentum stuck to the inner portion of the hernia sac. A portion of the omentum and the hernia sac were then excised. The hernia sac was then closed using a running locking 2-0 Vicryl suture. This was then reduced back into the preperitoneal space. The preperitoneal space was then dissected using blunt dissection and electrocautery. The 6.4 cm ventral ex mesh was placed beneath the fascia and sutured in place using 4 separate trans-fascial 0 Ethibond sutures. The defect was closed using interrupted 0 Ethibond mattress sutures. The folding edge of the closure was tacked down using interrupted at the bone sutures as well. The subcutaneous tissues were reapproximated using inverted 2- 0 & 3-0 Vicryl sutures. The umbilicus was tacked back down to the fascia using a 2-0 Vicryl suture. The skin was closed using 4-0 Monocryl sutures. Skin glue and sterile dressings were then applied. HERNIA CHARACTERISTICS: Length: 2.5 cm Width: 1.5 cm Type: Incarcerated umbilical TYPE OF MESH USED: Ventral ex 6.4 cm round LOCATION OF MESH: Sub-lay FIXATION: Trans-fascial 0 Ethibond sutures PREOPERATIVE DISCUSSION ON SMOKING CESSASTION: Yes PREOPERATIVE DISCUSSION ON MORBID OBESITY: Yes PREOPERATIVE DISCUSSION ON APPROPRIATE USE OF NARCOTIC USE: Yes DISPOSITION: Stable to recovery room
[2021-10-01] MEDS ORDERED: ACETAMINOPHEN TAB 325 MG TAB PO SCH (12:00)
[2021-10-01 13:41] VITALS: RESP 16
[2021-10-01 14:43] VITALS: BP 125/71; PULSE 62
[2021-10-01] MEDS ORDERED: IBUPROFEN 600 MG TAB PO SCH (15:00)
== END 2021-10-01 15:05 | disposition home or self-care (01) ==
LOC: OR 08:42
PROVIDERS: ATTEND Surgery
DX: K42.0 Umbilical hernia with obstruction, without gangrene (principal); E78.5 Hyperlipidemia, unspecified
CPT/HCPCS: 49587; 88302; C1781; J2250; J1100; J2710; J0690; J2405; J2001; J3010; J0330; J2704; J1170; J1644